=== PATIENT | male | born 1965 | race Caucasian/White ===

== ENCOUNTER 2018-10-07 06:40 | Day surgery (SDC) | payer OTHER ==
[~2018-10-07] VITALS: Ht 167.6 cm; Wt 121.0 kg
[~2018-10-07 06:40] MED LIST: CEPH500 PO; CYCL10; CYCL10 PO; Cholestyrami239.4 GM PO; HYDACE5 PO; IBUP800 PO; LOPE2C PO; META800 PO; ONDA8 PO; Omeprazole20 M1 PO; PENNSAID112 GM TP; PRED1; PROM25 PO; Percocet 5-3251 EACH PO; Prilosec Otc20 MG PO; TAMS.4ER PO
--- NOTE | 2018-10-07 10:26 | NUR ---
10/07/18 1026 Hilda Dill PT IS ENCOURAGED TO DEEP BREATH TO KEEP O2SAT ABOUVE 92%.
== END 2018-10-07 11:01 | disposition home or self-care (01) ==
LOC: ORSCSDS 06:40
PROVIDERS: Orthopaedic Surgery
PROC: 0MQR0ZZ Repair Left Ankle Bursa and Ligament, Open Approach (ICD-10-PCS; principal; 2018-10-07 08:00)
PROC: 0SBG4ZZ Excision of Left Ankle Joint, Percutaneous Endoscopic Approach (ICD-10-PCS; principal; 2018-10-07 08:00)
PROC: 0QBM4ZZ Excision of Left Tarsal, Percutaneous Endoscopic Approach (ICD-10-PCS; principal; 2018-10-07 08:00)
DX: M93.272 Osteochondritis dissecans, left ankle and joints of left foot (principal); M25.772 Osteophyte, left ankle; M19.072 Primary osteoarthritis, left ankle and foot; M25.372 Other instability, left ankle; G47.33 Obstructive sleep apnea (adult) (pediatric); E66.01 Morbid (severe) obesity due to excess calories; Z68.41 Body mass index [BMI] 40.0-44.9, adult; Z79.899 Other long term (current) drug therapy
CPT/HCPCS: 82947; C1713; J0171; J1100; J1885; J2250; J2405; J2704; J2795; J3010; J7120

== ENCOUNTER 2021-12-16 11:35 | Emergency (ER) | payer OTHER ==
[~2021-12-16] VITALS: Ht 165.1 cm; Wt 122.5 kg
[2021-12-16] MEDS ORDERED: PANTOPRAZOLE SO40 M2 PO (13:05)
== END 2021-12-16 14:30 | disposition home or self-care (01) ==
LOC: ER 11:35
DX: S63.601A Unspecified sprain of right thumb, initial encounter (principal); V89.2XXA Person injured in unspecified motor-vehicle accident, traffic, initial encounter; Z88.0 Allergy status to penicillin; Z88.1 Allergy status to other antibiotic agents; Z88.5 Allergy status to narcotic agent; Z88.8 Allergy status to other drugs, medicaments and biological substances
CPT/HCPCS: 73130; A9270

== ENCOUNTER 2022-07-03 10:06 | Emergency (ER) | payer OTHER ==
[~2022-07-03] VITALS: Ht 165.1 cm; Wt 122.5 kg
[~2022-07-03 10:06] MED LIST changes: +PANTOPRAZOLE SO40 M2 PO
[2022-07-03] MEDS ORDERED: EPIPEN0.3 MG/0.3 IM (10:39)
[2022-07-03] MEDS ORDERED: PRED20 PO (10:39)
[2022-07-03] MEDS ORDERED: Pepcid40 MG PO (10:39)
== END 2022-07-03 10:56 | disposition home or self-care (01) ==
LOC: ER 10:06
DX: T78.40XA Allergy, unspecified, initial encounter (principal); T78.3XXA Angioneurotic edema, initial encounter; Z88.0 Allergy status to penicillin; Z88.1 Allergy status to other antibiotic agents; Z88.5 Allergy status to narcotic agent; Z88.8 Allergy status to other drugs, medicaments and biological substances; Z79.899 Other long term (current) drug therapy
CPT/HCPCS: 99283; A9270

== ENCOUNTER 2024-09-01 17:53 | Observation (INO) | payer OTHER, BC ==
[~2024-09-01] VITALS: Ht 165.1 cm; Wt 121.1 kg
[2024-09-03 11:44] VITALS: BP 146/99
== END 2024-09-03 15:33 | disposition home or self-care (01) ==
LOC: ER 17:53 → MEDS 17:54
PROVIDERS: ADMIT Internal Medicine
DX: R07.89 Other chest pain (principal); K21.9 Gastro-esophageal reflux disease without esophagitis; E66.01 Morbid (severe) obesity due to excess calories; E11.9 Type 2 diabetes mellitus without complications; E78.5 Hyperlipidemia, unspecified; I10 Essential (primary) hypertension; Z88.0 Allergy status to penicillin; Z88.5 Allergy status to narcotic agent; Z88.8 Allergy status to other drugs, medicaments and biological substances; G47.33 Obstructive sleep apnea (adult) (pediatric)

== ENCOUNTER 2025-01-11 06:13 | Day surgery (SDC) | payer OTHER, BC ==
[~2025-01-11] VITALS: Ht 165.1 cm; Wt 120.0 kg
[2025-01-11] VITALS (13 sets, daily range): BP systolic 131–163; BP diastolic 86–113
[~2025-01-11 06:13] MED LIST changes: +EPIPEN0.3 MG/0.3 IM; +LOSA25 PO; +MOUNJARO5 MG/0.5 M SC; +Nexium40 MG PO; +PRED20 PO; +Pepcid40 MG PO
[2025-01-11] MEDS ORDERED: Benzocaine Oral Spray 0.5ML UD ONE (06:40)
[2025-01-11] MEDS ORDERED: NS 1,000 ML IV ONE (06:47)
[2025-01-11] MEDS ORDERED: FARXIGA10 MG PO (07:43)
--- NOTE | 2025-01-11 07:45 | NUR ---
PT AWAKE AND CONVERSING APPROPRIATEY, DENIES PAIN POST PROCEDURE, VSS, RA.
--- NOTE | 2025-01-11 08:17 | NUR ---
PT DRESSED SELF WITHOUT ISSUE; IV REMOVED-CANNULA INTACT. PT RECEIVED DISCHARGE INSTRUCTIONS, MED LIST AND AFTER CARE INSTRUCTIONS; VERBALIZED GOOD UNDERSTANDING. PT LEFT FACILITY VIA W/C, CONDITION STABLE.
[2025-01-11] MEDS ORDERED: Propofol 10mg/ml 20 ml Vial (Procedural) IV ONE (10:56)
== END 2025-01-11 22:00 | disposition home or self-care (01) ==
LOC: MHTC 06:13 → ORSCMMR 06:13 → ORD 07:00 → ORSCMMR 22:00 → MHTC 22:00
DX: Q21.12 Patent foramen ovale (principal)
CPT/HCPCS: 93312; 93325; A9270; J2704; J7030

== ENCOUNTER 2025-01-19 07:44 | Day surgery (SDC) | payer OTHER, BC ==
[~2025-01-19 07:44] MED LIST changes: +FARXIGA10 MG PO
[2025-01-19] MEDS ORDERED: Metoprolol Tartrate 1 MG/ML 5 ML VIAL IV ONE (10:23)
== END 2025-01-19 22:00 | disposition home or self-care (01) ==
LOC: CT 07:44
DX: R07.9 Chest pain, unspecified (principal); Z53.09 Procedure and treatment not carried out because of other contraindication; E78.5 Hyperlipidemia, unspecified; I10 Essential (primary) hypertension; K21.9 Gastro-esophageal reflux disease without esophagitis; E66.01 Morbid (severe) obesity due to excess calories; Z68.41 Body mass index [BMI] 40.0-44.9, adult; Z79.899 Other long term (current) drug therapy; Z88.5 Allergy status to narcotic agent; Z88.6 Allergy status to analgesic agent; Z88.0 Allergy status to penicillin; Z88.1 Allergy status to other antibiotic agents